=== PATIENT | male | born 1980 | race Caucasian/White ===

== ENCOUNTER 2018-06-10 16:13 | Emergency (ER) | payer OTHER ==
[~2018-06-10] VITALS: Ht 182.9 cm; Wt 76.9 kg
[2018-06-10 16:17] VITALS: Ht 182.9 cm; Wt 76.9 kg
[2018-06-10] MEDS ORDERED: LORAZEPAM 2 MG INJ ONE (16:54)
[2018-06-10] MEDS ORDERED: LORAZEPAM 2 MG INJ IM ONE (17:00)
--- NOTE | 2018-06-10 18:39 | ERD ---
ER Documentation Chief Complaint Chief Complaint pt states wants to hurt himself , no plan HPI 37-year-old man here with thoughts of hurting himself because he could not get his prescriptions filled which included [place] and a benzodiazepine for anxiety. Patient does have a long history of chronic back pain and psychiatric illness. He denies fevers or chills, no loss of bowel or bladder control, no chest pain or shortness of breath. Patient denies suicidal homicidal ideation and has no plan to kill himself ROS All systems reviewed and are negative except as per history of present illness. Allergies Allergies: Coded Allergies: No Known Allergy (Unverified , 06/10/18) PMhx/Soc Hx Psychiatric Problems: Yes (Bipolar, anxiety) Hx Alcohol Use: Yes Hx Substance Use: Yes Hx Tobacco Use: Yes Smoking Status: Current every day smoker FmHx Family History: No diabetes Physical Exam Vitals Vital Signs Date Temp Pulse Resp B/P (MAP) Pulse Ox O2 O2 Flow FiO2 Time Delivery Rate 06/10/18 98.0 122 18 102/56 98 16:17 (71) Physical Exam GENERAL: Well-developed, well-nourished, well-hydrated, anxious and agitated, afebrile NEURO: Alert and oriented 3, cranial nerves II through XII intact bilaterally, pupils equal round reactive to light, no focal deficits or facial asymmetry, sensation intact distally Strength 5/5 in upper and lower extremities bi laterally CARDIAC: Regular rate and rhythm, no murmurs rubs or gallops LUNGS: Clear bilaterally no wheezing crackles or stridor EXTREMITIES: No clubbing cyanosis or edema, calves are bilaterally symmetrical, no Homans sign, no popliteal cord sign. Distal pulses equal and bilateral PSYCH: Anxious, agitated Result Diagram: 06/10/18 1750 06/10/18 175 Results 24 hrs Laboratory Tests Test 06/10/18 17:30 06/10/18 17:50 Urine Color YELLOW Urine Clarity SLIGHTLY CLOUDY Urine pH 5.0 Urine Specific [place] 1.013 Urine Ketones NEGATIVE mg/dL Urine Nitrite NEGATIVE mg/dL Urine Bilirubin NEGATIVE mg/dL Urine Urobilinogen NEGATIVE mg/dL Urine Leukocyte Esterase NEGATIVE Brandon/ul Urine Microscopic RBC 1 /HPF Urine Microscopic WBC 2 /HPF Urine Bacteria FEW /HPF Urine Mucus MANY /HPF Urine Hemoglobin 1+ mg/dL Urine Glucose NEGATIVE mg/dL Urine Total Protein NEGATIVE mg/dl Urine Opiates Screen Positive Urine Barbiturates Negative Urine Amphetamines Screen Negative Urine Benzodiazepines Screen Negative Urine Cocaine Screen Negative Urine Cannabinoids Positive White Blood Count 5.9 10^3/ul Red Blood Count 5.40 10^6/ul Hemoglobin 15.8 g/dl Hematocrit 45.6 % Mean Corpuscular Volume 84.4 fl Mean Corpuscular Hemoglobin 29.3 pg Mean Corpuscular Hemoglobin Concent 34.6 g/dl Red Cell Distribution Width 12.0 % Platelet Count 438 10^3/UL Mean Platelet Volume 9.6 fl Immature Granulocytes % 0.200 % Neutrophils % 43.3 % Lymphocytes % 48.0 % Monocytes % 6.3 % Eosinophils % 1.0 % Basophils % 1.2 % Nucleated Red Blood Cells % 0.0 /100WBC Immature Granulocytes # 0.010 10^3/ul Neutrophils # 2.6 10^3/ul Lymphocytes # 2.8 10^3/ul Monocytes # 0.4 10^3/ul Eosinophils # 0.1 10^3/ul Basophils # 0.1 10^3/ul Nucleated Red Blood Cells # 0.0 10^3/ul Sodium Level 147 mmol/L Potassium Level 3.8 mmol/L Chloride Level 107 mmol/L Carbon Dioxide Level 22 mmol/L Anion Gap 18 Blood Urea Nitrogen 8 mg/dl Creatinine 0.73 mg/dl Est Glomerular Filtrat Rate mL/min > 60 mL/min Glucose Level 110 mg/dl Calcium Level 9.8 mg/dl Total Bilirubin 0.5 mg/dl Direct Bilirubin 0.00 mg/dl Indirect Bilirubin 0.5 mg/dl Aspartate Amino Transf (AST/SGOT) 38 IU/L Alanine Aminotransferase (ALT/SGPT) 28 IU/L Alkaline Phosphatase 105 IU/L Total Protein 9.9 g/dl Albumin 5.2 g/dl Globulin 4.70 g/dl Albumin/Globulin Ratio 1.10 Salicylates Level < 1.0 mg/dl Acetaminophen Level < 10.0 ug/ml Ethyl Alcohol Level 259.0 mg/dl Current Medications Medications Dose Sig/Kendell Start Time Status Last (Trade) Ordered Route PRN Stop Time Admin Dose Reason Admin Lorazepam 2 mg ONCE ONCE 06/10/18 DC 06/10/18 (Ativan) IM 17:00 06/10/18 16:58 17:01 Haloperidol 5 mg ONCE ONCE 06/10/18 DC 06/10/18 (Haldol) IM 20:00 06/10/18 19:43 20:01 50 mg STK-MED 06/10/18 DC Diphenhydrami ONCE .ROUTE 19:41 06/10/18 ne HCl 19:42 (Benadryl) Haloperidol 5 mg STK-MED 06/10/18 DC (Haldol) ONCE .ROUTE 19:41 06/10/18 19:42 Procedures/MDM Given his agitation I administered Ativan 2 mg IM x1. CBC and electrolytes are normal, liver function tests are unremarkable, ethanol level elevated at 259. Drug screen positive for cannabinoids and opiates, as pirin, acetaminophen levels negative I obtained tele-psychiatry consultation and it seems patient does have a history of psychiatric illness and suicidal attempts and stated he was going to kill himself because he was so agitated, so tele-psychiatry placed him on an involuntary 5150 psychiatric hold. Patient's behavioral symptoms have stabilized while in the department. Patient is medically cleared and appropriate for psychiatric evaluation and work up. No e/o neurologic, toxic, infectious, or metabolic cause. Patient is pending transfer to [facility] facility after PET evaluation Departure Diagnosis: Primary Impression: Alcohol intoxication Complication of substance-induced condition: uncomplicated Qualified Codes: F10.920 - Alcohol use, unspecified with intoxication, uncomplicated Additional Impressions: Alcohol abuse Schizophrenia Schizophrenia type: unspecified Qualified Codes: F20.9 - Schizophrenia, unspecified Suicidal ideation Condition: BIGG Stewart MD Jun 10, 2018 18:39
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
[2018-06-10] MEDS ORDERED: DIPHENHYDRAMINE 50 MG INJ ONE (19:41)
[2018-06-10] MEDS ORDERED: HALOPERIDOL 5 MG INJ ONE (19:41)
[2018-06-10] MEDS ORDERED: HALOPERIDOL 5 MG INJ IM ONE (20:00)
[2018-06-10] MEDS ORDERED: ONDANSETRON (ODT) 4 MG TAB ODT STA (22:30)
[2018-06-10] MEDS ORDERED: LIDOCAINE/MYLANTA 40 ML BTL PO ONE (22:30)
[2018-06-11] MEDS ORDERED: LORAZEPAM 2 MG INJ IM ONE
[2018-06-11] MEDS ORDERED: HALOPERIDOL 5 MG INJ IM ONE
--- NOTE | 2018-06-11 06:04 | EN ---
Date/Time of Note Date/Time of Note DATE: 06/11/18 TIME: 06:03 ER Progress Note Psychiatric Observation Note: Indication: Psychosis Duration: Greater than 4 hours Family history: As documented in original HPI The patient was observed with serial exams over the above timeframe. The patient continued to be well-appearing, and observation continued without complication. All other needs have been met during emergency department stay. Routine psychiatric medications ordered: Still pending psychiatric placement Hold status: Patient is still pending placement. Recommended 5150 by telemetry psychiatry AALIYAH JAIN Jun 11, 2018 06:04
[2018-06-11] MEDS ORDERED: ONDANSETRON (ODT) 4 MG TAB ODT STA (10:56)
[2018-06-11] MEDS ORDERED: OLANZAPINE 5 MG TAB PO ONE (11:00)
[2018-06-11] MEDS ORDERED: IBUPROFEN 600 MG TAB PO ONE (19:30)
[2018-06-11] MEDS ORDERED: LORAZEPAM 1 MG TAB PO ONE (20:00)
[2018-06-12] MEDS ORDERED: HALOPERIDOL 5 MG INJ IM ONE (01:30)
[2018-06-12] MEDS ORDERED: HYDROCODONE/APAP (10/325) TAB PO ONE (03:30)
--- NOTE | 2018-06-12 05:34 | EN ---
Date/Time of Note Date/Time of Note DATE: 06/12/18 TIME: 05:33 ER Progress Note Psychiatric Observation Note: Indication: Psychosis Duration: Greater than 35 hours Family history: As documented in original HPI The patient was observed with serial exams over the above timeframe. The patient continued to be well-appearing, and observation continued without complication. All other needs have been met during emergency department stay. Routine psychiatric medications ordered: Still pending psychiatric placement Hold status: Patient is on 5150. Recently accepted to [facility]. Pending bed placement at this time AALIYAH JAIN Jun 12, 2018 05:34
[2018-06-12] MEDS ORDERED: LORAZEPAM 1 MG TAB PO ONE (08:00)
[2018-06-12 08:14] VITALS: BP 134/77; PULSE 113; RESP 18
== END 2018-06-12 08:18 | disposition home or self-care (01) ==
LOC: E/R 16:13
DX: F10.920 Alcohol use, unspecified with intoxication, uncomplicated (principal); R40.2142 Coma scale, eyes open, spontaneous, at arrival to emergency department; F20.9 Schizophrenia, unspecified; R45.851 Suicidal ideations; R40.2252 Coma scale, best verbal response, oriented, at arrival to emergency department; R40.2362 Coma scale, best motor response, obeys commands, at arrival to emergency department
CPT/HCPCS: 80053; 80307; 81001; 85025; 96372; J1200; J1630; J2060; Z7502; Z7610